=== PATIENT | female | born 2000 | race Caucasian/White ===

== ENCOUNTER 2019-12-11 03:55 | Inpatient (IN) ==
[2019-12-11] MEDS ORDERED: Ondansetron 4 MG/2 ML VIAL IVP PRN (04:05)
[2019-12-11] MEDS ORDERED: Naloxone 0.4 MG/ML INJ IVP PRN (04:05)
[2019-12-11] MEDS ORDERED: Metoclopramide 10 MG/2 ML VIAL IVP PRN (04:05)
[2019-12-11] MEDS ORDERED: Famotidine 20 MG/2 ML VIAL IVP PRN (04:05)
[2019-12-11] MEDS ORDERED: Lidocaine 1% 20 ML MDV INFILT PRN (04:05)
[2019-12-11] MEDS ORDERED: D5% in 0.45% NACL 1,000 ML IVC SCH (04:15)
[2019-12-11] MEDS ORDERED: D5% in Lactated Ringers 1,000 ML IVC SCH (04:15)
[2019-12-11] MEDS: miSOPROStoL 25 MCG TABLET PO PRN ×2 (04:55→09:10)
[2019-12-11 05:00] LABS: Basophils % 0.3 %; Eosinophils # 0.1 K/mcL (0.0-0.6); Eosinophils % 1.4 %; Hematocrit 35.8 % (35.3-44.9); Immature Granulocytes % 0.4 % (0-4); Lymphocytes # 1.5 K/mcL (0.6-4.6); Lymphocytes % 18.8 %; Mean Corpuscular HGB Conc 33.5 g/dL (31.6-35.5); Mean Corpuscular Hemoglobin 30.3 pg (28.0-33.3); Mean Corpuscular Volume 90.4 fL (83.0-100.0); Mean Platelet Volume 11.5 fL (9.4-12.4); Monocytes # 0.5 K/mcL (0.0-1.3); Monocytes % 6.1 %; Neutrophils # 5.7 K/mcL (1.6-8.9); Platelet Count 187 K/mcL (140-400); Red Blood Count 3.96 M/mcL (3.82-4.97); Red Cell Distribution Width 14.3 % (11.5-14.5); White Blood Count 7.8 K/mcL (4.3-11.1)
[2019-12-11 05:09] LABS: Amphetamine Screen,Urine Negative ng/mL (Cutoff=1000); Barbiturate Screen,Urine Negative ng/mL (Cutoff=200); Benzodiazepines Screen,Urine Negative ng/mL (Cutoff=200); Cannabinoid Screen,Urine Negative ng/mL (Cutoff = 50); Cocaine Screen,Urine Negative ng/mL (Cutoff= 300); Opiate Screen,Urine Negative ng/mL (Cutoff=300); Phencyclidine Screen,Urine Negative ng/mL (Cutoff=25)
[2019-12-11] MEDS ORDERED: *HR* Promethazine 25 MG/ML VIAL IVP PRN (05:51)
[2019-12-11] MEDS ORDERED: *HR* HYDROmorphone PF 0.5 MG/0.5 ML SYRINGE IVP PRN (05:51)
[2019-12-11] MEDS ORDERED: EPHEDrine 50 MG/ML VIAL IVP PRN ×2 (06:02→14:51)
[2019-12-11] MEDS ORDERED: Epidural Premix (fent/bupiv) 110 ML EP SCH ×2 (06:15→15:00)
[2019-12-11] MEDS ORDERED: Ropivacaine/PF 0.2% 20 ML VIAL EP ONE (14:51)
[2019-12-11] MEDS ORDERED: *HR* FentaNYL (PF) 100 MCG/2 ML VIAL EP ONE (14:51)
[2019-12-11] MEDS: Ringers Solution, Lactated 1,000 ML ONE ×2 (15:02→15:03)
[2019-12-11] MEDS ORDERED: Oxytocin 20 units/ LR 1000 mL 20 UNIT/1,000 ML BAG IVC SCH (17:00)
[2019-12-11] MEDS ORDERED: Acetaminophen 325 MG TABLET PO PRN (20:29)
[2019-12-12] MEDS ORDERED: Oxytocin 20 units/ LR 1000 mL 20 UNIT/1,000 ML BAG IVC SCH (01:27)
[2019-12-12] MEDS ORDERED: *HR* HYDROcodone/Acet 5/325 mg TABLET PO PRN (01:27)
[2019-12-12] MEDS ORDERED: Benzocaine/Menthol 56 GM AEROSOL SPRAY TP PRN (01:27)
[2019-12-12] MEDS: Ibuprofen 600 MG TABLET PO SCH ×5 (01:47→18:29)
[2019-12-12] MEDS: Acetaminophen 325 MG TABLET PO SCH ×4 (01:47→16:21)
[2019-12-12] MEDS: Prenatal Vit/FA 1 EACH TABLET PO SCH (07:45)
[2019-12-12] MEDS ORDERED: Saline Nasal Spray 44 ML BOTTLE NS PRN (16:22)
[2019-12-12] MEDS: Acetaminophen 325 MG TABLET PO PRN (18:28)
[2019-12-13] MEDS: Acetaminophen 325 MG TABLET PO PRN (06:56)
[2019-12-13 09:12] VITALS: BP 124/72
[2019-12-13] MEDS: Ibuprofen 600 MG TABLET PO SCH (09:20)
[2019-12-13] MEDS: Prenatal Vit/FA 1 EACH TABLET PO SCH (09:20)
== END 2019-12-13 13:30 | disposition home or self-care (01) | DRG 542 ==
LOC: 1NENULAB 03:55 → 1NENUOBS 12-12 01:28
PROVIDERS: ADMIT Obstetrics & Gynecology; ATTEND Obstetrics & Gynecology